=== PATIENT | male | born 1980 | race Caucasian/White ===

== ENCOUNTER 2017-06-04 07:15 | Emergency (ER) | payer SELFPAY ==
[2017-06-04 07:32] LABS: Bilirubin Negative (Negative); Blood, Urine Negative (Negative); Glucose, Urine (Dipstick) Negative (Negative); Ketone, Urine Negative (Negative); Nitrite Negative (Negative); Protein, Urine (Dipstick) Negative (Neg-Trace); Urobilinogen 0.2 mg/dL (0.2-1.0)
[2017-06-04 07:34] LABS: #Basophils 0.1 thou/uL (0.0-0.2); #Eosinphils 0.2 thou/uL (0.0-0.7); #Monocytes 0.5 thou/uL (0.11-0.59); #Neutrophils 5.1 thou/uL (1.40-6.50); %Basophils 0.8 % (0.0-1.0); %Eosinophils 3.1 % (0.0-10.0); %Lymphocytes 25.5 % (21.0-51.0); %Monocytes 6.4 % (0.0-10.0); Hematocrit 52.4 % (42.0-52.0); Mean Platelet Volume 7.8 fL (7.4-10.4); Red Blood Cell (RBC) Count 5.57 mill/uL (4.70-6.10); White Blood Cell (WBC) Count 7.9 thou/uL (4.8-10.8)
[2017-06-04 07:58] LABS: ALT (SGPT) 28 U/L (8-55); AST (SGOT) 19 U/L (5-34); Alkaline Phosphatase 100 U/L (40-150); Anion Gap 12 mmol/L (10-20); BUN (Urea Nitrogen) 5 mg/dL (8.9-20.6); Bilirubin, Total 0.2 mg/dL (0.2-1.2); Calc. Creatinine Clearance 0 mL/min (70-130); Calcium 9.2 mg/dL (7.8-10.44); Carbon Dioxide 27 mmol/L (22-29); Chloride 104 mmol/L (98-107); Estimated GFR-MDRD Greater than 90; Globulin 2.8 g/dL (2.4-3.5); Lipase 146 U/L (8-78); Protein, Total 6.9 g/dL (6.0-8.3)
[2017-06-04] MEDS ORDERED: Ketorolac Tromethamine 30 MG/ML VIAL ONE (08:23)
[2017-06-04] MEDS ORDERED: Ondansetron HCl/PF 4 MG/2 ML Vial ONE (08:23)
--- NOTE | 2017-06-04 09:07 | CT ---
CT OF THE ABDOMEN AND PELVIS WITHOUT IV CONTRAST: Date: 06/04/17 COMPARISON: Prior study of the abdomen and pelvis by CT on 05/22/16. This examination was performed with IV cont rast. FINDINGS: No renal or ureteral calculus is evident. There is a normal appendix in the right lower quadrant of the abdomen. Lung bases are clear. Unopacified liver, spleen, pancreas, adrenal glands, and kidneys are normal appearing. Unopacified large and small bowel are unremarkable. There are subchondral cyst -like abnormalities involving the anterior aspect of the anterior superior femoral head/neck junctio n which can be seen with femoroacetabular impingement. IMPRESSION: 1. No renal or ureteral calculus. 2. Normal appendix. POS: [facility]
--- NOTE | 2017-06-04 10:19 | ULT ---
RIGHT UPPER QUADRANT SONOGRAM: History: Abnormal liver function tests. Right upper quadrant. FINDINGS: The gallbladder has a normal appearance without evidence of stones. Common duct is 0.5 cm diameter. Liver is diffusely echogenic and enlarged at 18 cm. No focal mass or free fluid are apparent. IMPRESSION: 1. No evidence of gallstones or biliary obstruction. 2. Hepatosteatosis. POS: [facility]
== END 2017-06-04 10:05 | disposition home or self-care (01) ==
LOC: ERS 07:15
DX: R10.32 Left lower quadrant pain (principal); R10.31 Right lower quadrant pain; F17.210 Nicotine dependence, cigarettes, uncomplicated
CPT/HCPCS: 36415; 74176; 76705; 80053; 81003; 83690; 85025; 96361; 96374; 96375; J1885; J2405

== ENCOUNTER 2017-08-17 12:09 | Emergency (ER) | payer SELFPAY ==
[2017-08-17] MEDS ORDERED: Bacitracin Zinc 1 Packet ONE (14:40)
[2017-08-17] MEDS ORDERED: Ketorolac Tromethamine 30 MG/ML VIAL ONE (14:40)
[2017-08-17] MEDS ORDERED: Lidocaine Viscous Sol 2% 15 ml UD Cup ONE (14:41)
== END 2017-08-17 15:01 | disposition home or self-care (01) ==
LOC: ERS 12:09
DX: S61.254A Open bite of right ring finger without damage to nail, initial encounter (principal); K04.7 Periapical abscess without sinus; Z87.891 Personal history of nicotine dependence; W54.0XXA Bitten by dog, initial encounter
CPT/HCPCS: 96372; J1885

== ENCOUNTER 2017-10-02 16:54 | Emergency (ER) | payer SELFPAY | END 2017-10-02 18:15 | disposition home or self-care (01) | LOC: ERS 16:54 | DX: K03.81 Cracked tooth (principal); K02.9 Dental caries, unspecified; F17.210 Nicotine dependence, cigarettes, uncomplicated | CPT/HCPCS: 99281 ==

== ENCOUNTER 2017-10-09 17:47 | Emergency (ER) | payer SELFPAY ==
[2017-10-09 18:29] LABS: #Eosinphils 0.1 thou/uL (0.0-0.7); #Lymphocytes 2.2 thou/uL (1.20-3.40); #Monocytes 0.6 thou/uL (0.11-0.59); #Neutrophils 8.2 thou/uL (1.40-6.50); %Basophils 0.3 % (0.0-1.0); %Eosinophils 0.9 % (0.0-10.0); %Lymphocytes 19.7 % (21.0-51.0); %Monocytes 5.6 % (0.0-10.0); %Neutrophils 73.6 % (42.0-75.0); Hemoglobin 16.8 g/dL (14.0-18.0); Mean Corpuscular HGB CONC 33.9 g/dL (32.0-36.0); Mean Corpuscular Hemoglobin 31.4 pg (27.0-31.0); Mean Corpuscular Volume 92.7 fl (80.0-94.0); Mean Platelet Volume 7.9 fL (7.4-10.4); Platelet Count 232 thou/uL (130-400); RBC Distribution Width 12.4 % (11.5-14.5); Red Blood Cell (RBC) Count 5.35 mill/uL (4.70-6.10); White Blood Cell (WBC) Count 11.1 thou/uL (4.8-10.8)
[2017-10-09 18:32] LABS: Bilirubin Small (Negative); Blood, Urine Negative (Negative); Clarity CLEAR (Clear); Glucose, Urine (Dipstick) Negative (Negative); Leukocyte Negative (Negative); Nitrite Negative (Negative); Protein, Urine (Dipstick) 30 mg/dL (Neg-Trace); Specific Gravity, Urine 1.035 (1.002-1.036); pH, Urine 5.5 (5.0-9.0)
[2017-10-09 18:38] LABS: Bacteria/HPF None Seen HPF (None Seen); Hyaline Casts/LPF 7-10 HYALINE CAST LPF (0-3 Hyaline); Pathc Cast-AUWi Flag 0.67 (0-2.49); RBC/HPF 0-3 HPF (0-3); Squamous Epithelial 0-3 HPF (0-3); WBC/HPF 0-3 HPF (0-3)
[2017-10-09 18:44] LABS: Amphetamine Detected (NotDetected); Barbiturates Screen Not Detected (NotDetected); Benzodiazepine Screen Not Detected (NotDetected); Cocaine Metabolite Screen Not Detected (NotDetected); Medtox Control Line Valid? VALID (VALID); Medtox Reader # READER 1; Methadone Not Detected (NotDetected); Methamphetamine Detected (NotDetected); Opiate Screen Not Detected (NotDetected); Oxycodone Screen Not Detected (NotDetected); Phencyclidine (PCP) Not Detected (NotDetected); THC/Cannabinoid Screen Detected (NotDetected); Tricyclic Screen Not Detected (NotDetected)
[2017-10-09] MEDS ORDERED: Haloperidol Lactate 5 MG/ML VIAL ONE (18:47)
[2017-10-09] MEDS ORDERED: Lorazepam 2 MG/ML VIAL ONE (18:47)
[2017-10-09 19:03] LABS: ALT (SGPT) 33 U/L (8-55); AST (SGOT) 33 U/L (5-34); Acetaminophen Less than 6.0 mcg/mL (10.0-30.0); Albumin 5.1 g/dL (3.5-5.0); Alcohol Less than 10 mg/dL (Less than 10); Alkaline Phosphatase 103 U/L (40-150); Anion Gap 16 mmol/L (10-20); BUN (Urea Nitrogen) 19 mg/dL (8.9-20.6); Bilirubin, Total 1.3 mg/dL (0.2-1.2); CK (CPK) 699 U/L (30-200); Calc. Creatinine Clearance 0 mL/min (70-130); Carbon Dioxide 24 mmol/L (22-29); Chloride 101 mmol/L (98-107); Estimated GFR-MDRD 83; Glucose 81 mg/dL (70-105); Potassium 3.6 mmol/L (3.5-5.1); Protein, Total 8.1 g/dL (6.0-8.3); Salicylate Less than 8.0 mg/dL (15.0-30.0); Sodium 137 mmol/L (136-145)
[2017-10-10] MEDS ORDERED: risperiDONE 1 MG TAB PO PRN (07:36)
[2017-10-10] MEDS ORDERED: Nicotine 14 MG PATCH TOP SCH (08:00)
[2017-10-10] MEDS ORDERED: Ziprasidone 20 MG VIAL ONE (14:19)
[2017-10-10] MEDS ORDERED: Sterile Water 10 ML ONE (14:21)
[2017-10-10] MEDS ORDERED: Haloperidol Lactate 5 MG/ML VIAL ONE (14:37)
[2017-10-11] MEDS ORDERED: Lorazepam 2 MG/ML VIAL IM SCH (06:00)
[2017-10-11] MEDS ORDERED: Lorazepam 2 MG/ML VIAL ONE (06:05)
[2017-10-11] MEDS ORDERED: risperiDONE 1 MG TAB ONE (12:01)
--- NOTE | 2017-10-12 12:09 | EKG ---
Test Reason : Blood Pressure : / mmHG Vent. Rate : 092 BPM Atrial Rate : 092 BPM P-R Int : 134 ms QRS Dur : 088 ms QT Int : 362 ms P-R-T Axes : 046 049 026 degrees QTc Int : 447 ms Sinus rhythm with marked sinus arrhythmia Otherwise normal ECG Confirmed by ZOEY HALEY, LORENA ([id number]), commissioning editor CHELSEA DANG ([id number]) on 10/12/2017 12:09:36 PM Referred By: Confirmed By:LORENA GREER MD
== END 2017-10-11 14:38 ==
LOC: ERS 17:47
DX: S51.811A Laceration without foreign body of right forearm, initial encounter (principal); F32.9 Major depressive disorder, single episode, unspecified; F17.210 Nicotine dependence, cigarettes, uncomplicated; F19.10 Other psychoactive substance abuse, uncomplicated; X78.0XXA Intentional self-harm by sharp glass, initial encounter; Y92.009 Unspecified place in unspecified non-institutional (private) residence as the place of occurrence of the external cause
CPT/HCPCS: 36415; 80053; 80306; 80307; 81003; 81015; 82550; 84443; 85025; 93005; 96372; A4216; J1630; J2060; J3486